=== PATIENT | female | born 1955 | race Caucasian/White ===

== ENCOUNTER 2016-12-13 15:44 | Emergency (ER) | payer OTHER ==
[2016-12-13] MEDS ORDERED: PLAVIX75 M1 PO (15:55)
[2016-12-13] MEDS ORDERED: ALDACTONE50 M1 (15:55)
[2016-12-13] MEDS ORDERED: [UNRECOGNIZED DRUG - OTHER] (15:56)
[2016-12-13] MEDS ORDERED: PROTONIX40 M2 PO (15:56)
[2016-12-13] MEDS ORDERED: ACID REFLUX (15:56)
== END 2016-12-13 18:22 ==
LOC: EDMED 15:44
DX: S40.011A Contusion of right shoulder, initial encounter (principal); S20.212A Contusion of left front wall of thorax, initial encounter; S60.221A Contusion of right hand, initial encounter; S80.02XA Contusion of left knee, initial encounter; V49.40XA Driver injured in collision with unspecified motor vehicles in traffic accident, initial encounter; Y92.410 Unspecified street and highway as the place of occurrence of the external cause